=== PATIENT | male | born 1975 | race Caucasian/White ===

== ENCOUNTER 2025-03-06 17:22 | Emergency (ER) | payer MEDICAID, OTHER, SELFPAY ==
[~2025-03-06] VITALS: Ht 152.4 cm; Wt 56.8 kg
[2025-03-06 21:26] LABS: BASO % 0.7 % (0.0-1.0); EOS # 0.3 10^3/uL (0.0-0.5); EOS % 5.3 % (0.0-3.0); HEMATOCRIT 33.5 % (42.0-52.0); HEMOGLOBIN 10.6 g/dl (13.5-17.5); LYMPH # 1.3 10^3/uL (1.5-5.0); LYMPH % 22.4 % (24.0-44.0); MEAN CORPUSCULAR HEMOGLOBIN 27.1 pg (27.0-33.0); MEAN CORPUSCULAR HGB CONC 31.6 g/dl (32.0-36.5); MEAN CORPUSCULAR VOLUME 85.7 fl (80.0-96.0); MONO # 0.4 10^3/uL (0.0-0.8); MONO % 7.2 % (2.0-8.0); NEUTROPHILS # 3.6 10^3/uL (1.5-8.5); NEUTROPHILS % 64.2 % (36.0-66.0); PLATELET COUNT, AUTOMATED 289 10^3/uL (150-450); RED BLOOD COUNT 3.91 10^6/uL (4.30-6.10); WHITE BLOOD COUNT 5.7 10^3/uL (4.0-10.0)
[2025-03-06 21:31] LABS: LIPASE 67 U/L (12-53)
[2025-03-06 21:34] LABS: ALBUMIN 3.4 G/DL (3.2-5.2); ALKALINE PHOSPHATASE 74 U/L (40-129); ALT/SGPT 28 U/L (7.0-40); AST/SGOT 22 U/L (<34); BILIRUBIN,DIRECT < 0.1 MG/DL (<0.4); BILIRUBIN,TOTAL 0.2 MG/DL (0.3-1.2); BLOOD UREA NITROGEN 34 MG/DL (9-23); CALCIUM LEVEL 8.9 MG/DL (8.5-10.1); CARBON DIOXIDE LEVEL 29 MMOL/L (20-31); CHLORIDE LEVEL 104 MMOL/L (98-107); CREATININE FOR GFR 1.29 MG/DL (0.70-1.30); GLOMERULAR FILTRATION RATE 68.8 (>60); GLUCOSE, FASTING 284 MG/DL (60-100); MAGNESIUM LEVEL 2.1 MG/DL (1.8-2.4); POTASSIUM SERUM 5.2 MMOL/L (3.5-5.1); SODIUM LEVEL 142 MMOL/L (136-145); TOTAL PROTEIN 5.8 G/DL (5.7-8.2)
[2025-03-06 21:35] LABS: ACETONE/KETONE 0.11 MMOL/L (0.02-0.27)
[2025-03-06] MEDS: NS (Normal Saline) 0.9% 1,000 ML IV ONE (21:35)
[2025-03-06 21:41] LABS: OSMOLALITY SERUM 310 MOSM/KG (275-295)
[2025-03-06 21:53] LABS: HEMOGLOBIN A1c 9.5 % (4.0-6.0)
[2025-03-06] MEDS: hydrOXYzine 25 MG TAB PO STA (22:12)
[2025-03-07] MEDS ORDERED: LANTINJ4 SC ×2 (00:39→00:51)
[2025-03-07] MEDS ORDERED: INSU100I16 SQ ×2 (00:39→00:51)
[2025-03-07 01:19] VITALS: BP 145/70; TEMP 98.1; O2SAT 98
== END 2025-03-07 01:37 | disposition home or self-care (01) ==
LOC: M ED 17:22
DX: H53.123 Transient visual loss, bilateral (principal); E10.65 Type 1 diabetes mellitus with hyperglycemia; F12.10 Cannabis abuse, uncomplicated; F10.10 Alcohol abuse, uncomplicated; Z88.8 Allergy status to other drugs, medicaments and biological substances

== ENCOUNTER → 2025-03-31 | Outpatient (CLI) | payer MEDICAID, OTHER ==
[~2025-03-31] MED LIST: INSU100I16 SQ; LANTINJ4 SC
== END ==
LOC: M PLALAB 11:51 → M LAB 11:51
PROVIDERS: ATTEND Student in an Organized Health Care Education/Training Program
DX: E11.69 Type 2 diabetes mellitus with other specified complication (principal); Z79.4 Long term (current) use of insulin

== ENCOUNTER 2025-05-02 07:57 | Emergency (ER) | payer MEDICAID, OTHER ==
[~2025-05-02] VITALS: Ht 152.4 cm; Wt 59.2 kg
[2025-05-02] MEDS ORDERED: BUPR150T12 (08:08)
[2025-05-02] MEDS ORDERED: PREG50CA3 (08:08)
[2025-05-02] MEDS ORDERED: DULO1CAP6 (08:08)
[2025-05-02] MEDS ORDERED: CELE1CAP (08:08)
[2025-05-02] MEDS ORDERED: TRAZ-252 (08:08)
[2025-05-02] MEDS: MORPHINE 4 MG/ML 1 ML VIAL IV ONE ×2 (10:41→12:21)
[2025-05-02] MEDS: ONDANSETRON 4MG 2ML VIAL IV ONE (10:41)
[2025-05-02] MEDS: NS (Normal Saline) 0.9% 1,000 ML IV ONE ×2 (10:41→13:55)
[2025-05-02 10:54] LABS: BASO # 0.1 10^3/uL (0.0-0.2); BASO % 1.0 % (0.0-1.0); EOS # 0.4 10^3/uL (0.0-0.5); EOS % 6.1 % (0.0-3.0); LYMPH # 2.2 10^3/uL (1.5-5.0); LYMPH % 31.3 % (24.0-44.0); MONO # 0.5 10^3/uL (0.0-0.8); MONO % 7.5 % (2.0-8.0); NEUTROPHILS # 3.8 10^3/uL (1.5-8.5); NEUTROPHILS % 54.0 % (36.0-66.0); PLATELET COUNT, AUTOMATED 278 10^3/uL (150-450)
[2025-05-02 11:21] LABS: ALT/SGPT 24 U/L (7.0-40); AST/SGOT 38 U/L (<34); CALCIUM LEVEL 8.9 MG/DL (8.5-10.1); CARBON DIOXIDE LEVEL 26 MMOL/L (20-31); CHLORIDE LEVEL 105 MMOL/L (98-107); CK-MB VALUE MASS 10.5 NG/ML (<3.6); CPK CREATINE PHOSPHOKINASE 242 U/L (46-171); CREATININE FOR GFR 1.52 MG/DL (0.70-1.30); GLOMERULAR FILTRATION RATE 56.5 (>60); MB/CK RELATIVE INDEX 4.33 (< OR =4); POTASSIUM SERUM 6.1 MMOL/L (3.5-5.1); SODIUM LEVEL 142 MMOL/L (136-145)
[2025-05-02] MEDS ORDERED: ISOVUE-370 76% 100 ML VIAL As Ordered ONE (11:29)
[2025-05-02 12:00] LABS: POTASSIUM SERUM 5.0 MMOL/L (3.5-5.1)
[2025-05-02 13:48] LABS: KETONE, URINE AUTO RFX NEGATIVE (NEGATIVE); LEUKOCYTE ESTERASE UR AUTO RFX NEGATIVE (NEGATIVE); NITRITE, URINE AUTO RFX NEGATIVE (NEGATIVE); RBC, URINE AUTO RFX 3 /HPF (0-3); SQUAM EPITHELIAL CELL UR AURFX 0 /HPF (0-6); WBC, URINE AUTO RFX 1 /HPF (0-3)
[2025-05-02] MEDS ORDERED: COLA100C5 PO (13:49)
[2025-05-02] MEDS ORDERED: OMEP40CA4 PO (14:44)
[2025-05-02 16:00] VITALS: BP 140/68; TEMP 96.6; O2SAT 98
== END 2025-05-02 16:02 | disposition home or self-care (01) ==
LOC: M ED 07:57
DX: E86.0 Dehydration (principal); N17.9 Acute kidney failure, unspecified; N40.0 Benign prostatic hyperplasia without lower urinary tract symptoms; K59.00 Constipation, unspecified; R79.9 Abnormal finding of blood chemistry, unspecified; J43.9 Emphysema, unspecified; N32.89 Other specified disorders of bladder; R31.9 Hematuria, unspecified; E10.9 Type 1 diabetes mellitus without complications; F41.9 Anxiety disorder, unspecified; Z87.01 Personal history of pneumonia (recurrent); F12.10 Cannabis abuse, uncomplicated; Z88.8 Allergy status to other drugs, medicaments and biological substances
CPT/HCPCS: 71275; 74177; 80048; 80076; 81001; 82550; 82553; 83690; 84132; 84484; 85025; 87486; 87581; 87633; 87798; 93005; 96361; 96374; 96375; 96376; 99285; J2405; Q9967

== ENCOUNTER 2025-05-30 02:14 | Emergency (ER) | payer OTHER ==
[~2025-05-30] VITALS: Ht 152.4 cm; Wt 59.1 kg
[~2025-05-30 02:14] MED LIST changes: +BUPR150T12; +CELE1CAP; +COLA100C5 PO; +DULO1CAP6; +OMEP40CA4 PO; +PREG50CA3; +TRAZ-252
[2025-05-30 02:43] LABS: BASO # 0.1 10^3/uL (0.0-0.2); BASO % 0.7 % (0.0-1.0); EOS # 0.5 10^3/uL (0.0-0.5); EOS % 5.2 % (0.0-3.0); LYMPH # 1.6 10^3/uL (1.5-5.0); LYMPH % 17.5 % (24.0-44.0); MONO # 0.6 10^3/uL (0.0-0.8); MONO % 7.0 % (2.0-8.0); NEUTROPHILS # 6.3 10^3/uL (1.5-8.5); NEUTROPHILS % 69.2 % (36.0-66.0); PLATELET COUNT, AUTOMATED 302 10^3/uL (150-450)
[2025-05-30 03:16] LABS: CALCIUM LEVEL 9.8 MG/DL (8.5-10.1); CARBON DIOXIDE LEVEL 27.0 MMOL/L (20-31); CHLORIDE LEVEL 104.0 MMOL/L (98-107); CK-MB VALUE MASS 10.3 NG/ML (<3.6); CREATININE FOR GFR 1.58 MG/DL (0.70-1.30); GLOMERULAR FILTRATION RATE 53.6 (>60); POTASSIUM SERUM 4.8 MMOL/L (3.5-5.1); SODIUM LEVEL 141.0 MMOL/L (136-145)
[2025-05-30 03:22] LABS: CPK CREATINE PHOSPHOKINASE 167.0 U/L (46-171); MB/CK RELATIVE INDEX 6.16 (< OR =4)
[2025-05-30] MEDS: MORPHINE 2 MG/ML 1 ML VIAL IV ONE (04:38)
[2025-05-30] MEDS: NS 1,180 ML IV ONE (04:55)
[2025-05-30 05:15] LABS: CK-MB VALUE MASS 10.1 NG/ML (<3.6)
[2025-05-30 05:16] LABS: CPK CREATINE PHOSPHOKINASE 147.0 U/L (46-171); MB/CK RELATIVE INDEX 6.87 (< OR =4)
[2025-05-30] MEDS: KETOROLAC 30 MG/ML 1 ML VIAL IV ONE (05:33)
[2025-05-30 05:48] VITALS: TEMP 97.3
[2025-05-30] MEDS ORDERED: IBUP600T42 PO (05:53)
[2025-05-30 06:14] VITALS: O2SAT 99
[2025-05-30 06:15] VITALS: BP 152/69
== END 2025-05-30 06:39 | disposition home or self-care (01) ==
LOC: M ED 02:14
DX: M25.511 Pain in right shoulder (principal); R07.89 Other chest pain; E11.9 Type 2 diabetes mellitus without complications; K31.84 Gastroparesis; Z79.899 Other long term (current) drug therapy; Z88.8 Allergy status to other drugs, medicaments and biological substances
CPT/HCPCS: 71045; 80048; 82550; 82553; 84484; 85025; 93005; 93041; 94760; 99285; J1885

== ENCOUNTER 2025-07-30 10:37 | Inpatient (IN) | payer OTHER ==
[~2025-07-30] VITALS: Ht 152.4 cm; Wt 57.9 kg
[~2025-07-30 10:37] MED LIST changes: -BUPR150T12; +BUPR150T12 PO; -CELE1CAP; +CELE1CAP PO; -DULO1CAP6; +DULO1CAP6 PO; +IBUP600T42 PO; -PREG50CA3; +PREG50CA3 PO; -TRAZ-252; +TRAZ-252 PO
[2025-07-30 12:26] LABS: BASO # 0.0 10^3/uL (0.0-0.2); BASO % 0.5 % (0.0-1.0); EOS # 0.3 10^3/uL (0.0-0.5); EOS % 4.2 % (0.0-3.0); LYMPH # 1.5 10^3/uL (1.5-5.0); LYMPH % 23.7 % (24.0-44.0); MONO # 0.6 10^3/uL (0.0-0.8); MONO % 9.1 % (2.0-8.0); NEUTROPHILS # 3.8 10^3/uL (1.5-8.5); NEUTROPHILS % 62.3 % (36.0-66.0); PLATELET COUNT, AUTOMATED 268 10^3/uL (150-450)
[2025-07-30 12:51] LABS: CK-MB VALUE MASS 13.3 NG/ML (<3.6)
[2025-07-30 12:53] LABS: CALCIUM LEVEL 9.1 MG/DL (8.5-10.1); CARBON DIOXIDE LEVEL 27.0 MMOL/L (20-31); CHLORIDE LEVEL 106.0 MMOL/L (98-107); CPK CREATINE PHOSPHOKINASE 226.0 U/L (46-171); CREATININE FOR GFR 1.65 MG/DL (0.70-1.30); GLOMERULAR FILTRATION RATE 50.9 (>60); MAGNESIUM LEVEL 2.0 MG/DL (1.8-2.4); MB/CK RELATIVE INDEX 5.88 (< OR =4); POTASSIUM SERUM 4.9 MMOL/L (3.5-5.1); SODIUM LEVEL 143.0 MMOL/L (136-145)
[2025-07-30] MEDS: ACETAMINOPHEN *IV* 1,000 MG in IV 1 EA IV ONE (13:06)
[2025-07-30] MEDS: NS (Normal Saline) 0.9% 1,000 ML IV ONE (13:53)
[2025-07-30 14:23] LABS: KETONE, URINE AUTO RFX NEGATIVE (NEGATIVE); LEUKOCYTE ESTERASE UR AUTO RFX NEGATIVE (NEGATIVE); MUCUS, URINE RFX SMALL (NEGATIVE); NITRITE, URINE AUTO RFX NEGATIVE (NEGATIVE); RBC, URINE AUTO RFX 1 /HPF (0-3); SQUAM EPITHELIAL CELL UR AURFX 0 /HPF (0-6); WBC, URINE AUTO RFX 0 /HPF (0-3)
[2025-07-30] MEDS ORDERED: KETOROLAC 30 MG/ML 1 ML VIAL As Ordered ONE (14:59)
[2025-07-30] MEDS: KETOROLAC 30 MG/ML 1 ML VIAL IV ONE ×2 (15:00→18:17)
[2025-07-30] MEDS: diphenhydrAMINE 50 MG/ML VIAL IV ONE (17:50)
[2025-07-30] MEDS ORDERED: GLUCAGON INJ 1 MG VIAL SC PRN (18:55)
[2025-07-30 19:30] LABS: AMPHETAMINES LEVEL URINE NEGATIVE (NEGATIVE)
[2025-07-30 19:31] LABS: BARBITURATES URINE NEGATIVE (NEGATIVE); BENZODIAZEPINES URINE NEGATIVE (NEGATIVE); COCAINE METABOLITE URINE NEGATIVE (NEGATIVE); METHADONE URINE NEGATIVE (NEGATIVE); OPIATES URINE NEGATIVE (NEGATIVE); PHENCYCLIDINE URINE NEGATIVE (NEGATIVE)
[2025-07-30 19:32] LABS: CANNABINOIDS URINE POSITIVE (NEGATIVE)
[2025-07-30] MEDS: ATORVASTATIN 20 MG TAB PO ONE (20:11)
[2025-07-30] MEDS: ASPIRIN 325 MG TAB PO ONE (20:11)
[2025-07-30] MEDS: NS (Normal Saline) 0.9% 1,000 ML IV SCH (20:42)
[2025-07-30] MEDS ORDERED: LanTUS (INSULIN GLARGINE INJ) 1 UNITS/0.01 ML SC SCH (21:00)
[2025-07-30] MEDS: INSULIN LISPRO (NovoLOG) PER UNIT SC SCH (21:00)
[2025-07-30] MEDS ORDERED: INSU100I16 SQ (21:02)
[2025-07-30] MEDS ORDERED: LANTINJ4 SC (21:02)
[2025-07-30] MEDS ORDERED: DOCU100C16 PO (21:02)
[2025-07-30] MEDS ORDERED: B-COCAP7 PO (21:03)
[2025-07-30 21:18] VITALS: BP 163/75; TEMP 98.8; O2SAT 97
[2025-07-30 22:04] LABS: ESTIMATED AVERAGE GLUCOSE 180.0 MG/DL (60-110)
[2025-07-30 22:12] LABS: ETHYL ALCOHOL (ETHANOL) < 0.003 % (0.000-0.010)
[2025-07-30 22:14] LABS: CREATININE FOR GFR 1.53 MG/DL (0.70-1.30); GLOMERULAR FILTRATION RATE 55.7 (>60)
[2025-07-30] MEDS ORDERED: HOME MED LIST COMPLETE! XX SCH (22:15)
[2025-07-30 22:17] LABS: VITAMIN B12 LEVEL 366 PG/ML (211-911)
[2025-07-30 22:26] LABS: INR 0.86
[2025-07-30 23:07] LABS: C REACTIVE PROTEIN QUANTITATIV < 0.50 MG/DL (<1.0)
[2025-07-31] MEDS ORDERED: INSULIN LISPRO (NovoLOG) PER UNIT SC SCH
[2025-07-31] MEDS: FIORICET TAB PO PRN (00:44)
[2025-07-31 03:24] VITALS: BP 132/64; TEMP 98.7; O2SAT 98
[2025-07-31 06:55] LABS: PLATELET COUNT, AUTOMATED 245 10^3/uL (150-450)
[2025-07-31 07:17] LABS: CALCIUM LEVEL 8.1 MG/DL (8.5-10.1); CARBON DIOXIDE LEVEL 26.0 MMOL/L (20-31); CHLORIDE LEVEL 107.0 MMOL/L (98-107); CREATININE FOR GFR 1.48 MG/DL (0.70-1.30); GLOMERULAR FILTRATION RATE 58.0 (>60); POTASSIUM SERUM 4.9 MMOL/L (3.5-5.1); SODIUM LEVEL 140.0 MMOL/L (136-145)
[2025-07-31] MEDS: INSULIN LISPRO (NovoLOG) PER UNIT SC SCH (08:07)
[2025-07-31] MEDS: CYANOCOBALAMIN 500 MCG TAB PO SCH (08:07)
[2025-07-31] MEDS: ENOXAPARIN 40 MG/0.4 ML SYRINGE (J1650 PER 10MG) SC SCH (08:07)
[2025-07-31] MEDS: LanTUS (INSULIN GLARGINE INJ) 1 UNITS/0.01 ML SC SCH (08:08)
[2025-07-31] MEDS: THIAMINE 100 MG TAB PO SCH (08:08)
[2025-07-31 09:36] LABS: IRON (FE) 60.0 UG/DL (65-175); PERCENT SATURATION 19.5 % (19.7-50.0)
[2025-07-31 09:39] LABS: VITAMIN B12 LEVEL 304.0 PG/ML (211-911)
[2025-07-31 12:00] VITALS: BP 148/70; TEMP 98.5; O2SAT 95
[2025-07-31] MEDS: FERROUS SULFATE 325 MG TAB PO SCH (12:47)
[2025-07-31] MEDS: buPROPion **XL** 150 MG TABLET PO SCH (12:48)
[2025-07-31] MEDS: CYANOCOBALAMIN 1,000 MCG/ML 1 ML VIAL IM ONE (13:57)
[2025-07-31] MEDS: GLUCOSE 4 GM CHEW PO PRN (14:22)
[2025-07-31] MEDS: PREGABALIN 100 MG CAP PO SCH (16:12)
[2025-07-31] MEDS: ACETAMINOPHEN 325 MG TAB PO ONE (17:09)
[2025-07-31] MEDS: MAG SULF 1GM/100ML (MAG RUN) 1 GM in IV 1 EA IV ONE (17:09)
[2025-07-31 20:31] VITALS: BP 132/60; TEMP 98.3; O2SAT 98
[2025-07-31] MEDS: traZODone 100 MG TAB PO SCH (21:27)
[2025-08-01 05:34] VITALS: BP 103/57; TEMP 98.9; O2SAT 97
[2025-08-01 07:47] LABS: ALT/SGPT 13.0 U/L (7.0-40); AST/SGOT 17.0 U/L (<34); CALCIUM LEVEL 8.4 MG/DL (8.5-10.1); CARBON DIOXIDE LEVEL 27.0 MMOL/L (20-31); CHLORIDE LEVEL 108.0 MMOL/L (98-107); CREATININE FOR GFR 1.44 MG/DL (0.70-1.30); GLOMERULAR FILTRATION RATE 59.9 (>60); POTASSIUM SERUM 5.2 MMOL/L (3.5-5.1); SODIUM LEVEL 143.0 MMOL/L (136-145)
[2025-08-01] MEDS: LanTUS (INSULIN GLARGINE INJ) 1 UNITS/0.01 ML SC SCH (08:05)
[2025-08-01 08:18] LABS: T P ELECTROPHORESIS SO 5.1 g/dL (6.1-8.1)
[2025-08-01] MEDS: DEXTROSE 50% 50 ML SYRINGE IV PRN (10:21)
[2025-08-01 12:45] VITALS: BP 110/59; TEMP 98.1; O2SAT 97
[2025-08-01] MEDS: SUMAtriptan SUCCINATE 50MG TABLET PO ONE (13:37)
[2025-08-01] MEDS: TOPIRAMATE 25 MG TAB PO ONE (18:02)
[2025-08-01 20:40] VITALS: BP 143/67; TEMP 98.6; O2SAT 97
[2025-08-02 03:42] VITALS: BP 88/51; TEMP 99.2; O2SAT 96
[2025-08-02] MEDS: NS (Normal Saline) 0.9% 1,000 ML IV ONE (04:49)
[2025-08-02 06:11] VITALS: BP 117/56
[2025-08-02 06:48] LABS: PLATELET COUNT, AUTOMATED 244 10^3/uL (150-450)
[2025-08-02] MEDS: TOPIRAMATE 25 MG TAB PO SCH (08:54)
[2025-08-02] MEDS: LanTUS (INSULIN GLARGINE INJ) 1 UNITS/0.01 ML SC SCH (09:48)
[2025-08-02] MEDS: LORazepam 1 MG TAB PO ONE (11:35)
[2025-08-02 11:40] VITALS: BP 105/57; TEMP 98.4; O2SAT 99
[2025-08-02] MEDS ORDERED: PROHANCE 279.3MG/ML 15ML VIAL As Ordered ONE (12:16)
[2025-08-02 20:02] VITALS: BP 98/46; TEMP 98.2; O2SAT 98
[2025-08-03 06:03] VITALS: BP 100/55; TEMP 98.1; O2SAT 97
[2025-08-03 06:33] LABS: PLATELET COUNT, AUTOMATED 242 10^3/uL (150-450)
[2025-08-03 07:02] LABS: ALT/SGPT 15 U/L (7.0-40); AST/SGOT 14 U/L (<34); CALCIUM LEVEL 8.5 MG/DL (8.5-10.1); CARBON DIOXIDE LEVEL 27 MMOL/L (20-31); CHLORIDE LEVEL 107 MMOL/L (98-107); CREATININE FOR GFR 1.34 MG/DL (0.70-1.30); GLOMERULAR FILTRATION RATE 65.3 (>60); MAGNESIUM LEVEL 1.9 MG/DL (1.8-2.4); POTASSIUM SERUM 5.4 MMOL/L (3.5-5.1); SODIUM LEVEL 141 MMOL/L (136-145)
[2025-08-03 07:02] LABS: ALBUMIN SPEP 3.1 g/dL (3.8-4.8); ALPHA-1-GLOBULINS SO 0.2 g/dL (0.2-0.3); ALPHA-2-GLOBULINS SO 0.6 g/dL (0.5-0.9); BETA 2 GLOBULIN 0.3 g/dL (0.2-0.5); BETA-GLOBULIN SO 0.4 g/dL (0.4-0.6); GAMMA GLOBULINS SO 0.5 g/dL (0.8-1.7)
[2025-08-03 12:00] VITALS: BP 95/52; TEMP 99.1; O2SAT 99
[2025-08-03] MEDS: KETOROLAC 30 MG/ML 1 ML VIAL IV ONE (13:43)
[2025-08-03] MEDS: MAG SULF 1GM/100ML (MAG RUN) 1 GM in IV 1 EA IV ONE (13:45)
[2025-08-03] MEDS: LR 500 ML in IV 1 EA IV ONE (13:45)
[2025-08-03 14:22] LABS: CALCIUM LEVEL 8.5 MG/DL (8.5-10.1); CARBON DIOXIDE LEVEL 24.0 MMOL/L (20-31); CHLORIDE LEVEL 108.0 MMOL/L (98-107); CREATININE FOR GFR 1.41 MG/DL (0.70-1.30); GLOMERULAR FILTRATION RATE 61.5 (>60); POTASSIUM SERUM 4.8 MMOL/L (3.5-5.1); SODIUM LEVEL 141.0 MMOL/L (136-145)
[2025-08-03] MEDS ORDERED: LANTINJ4 SC (14:34)
[2025-08-03] MEDS ORDERED: TRAZ-252 PO (14:34)
[2025-08-03] MEDS ORDERED: PREG50CA3 PO ×2 (14:34→14:36)
[2025-08-03] MEDS ORDERED: ASPI81CH33 PO (14:44)
[2025-08-04 01:43] LABS: COPPER PLASMA 86.0 mcg/dL (70-175)
[2025-08-04 22:04] LABS: LYME TOTAL ANTIBODY CIA <= 0.90 Index (<=0.90)
[2025-08-06 12:02] LABS: VITAMIN B6,PYRIDOXAL PHOSPHATE 5.1 ng/mL (2.1-21.7)
== END 2025-08-03 18:11 | disposition home health service (06) | DRG 861 ==
LOC: M ED 10:37 → M ED INP 18:55 → M MSPAV 21:40
PROVIDERS: ADMIT Internal Medicine; ATTEND Student in an Organized Health Care Education/Training Program
DX: R53.1 Weakness (principal); E10.22 Type 1 diabetes mellitus with diabetic chronic kidney disease; K31.84 Gastroparesis; N17.9 Acute kidney failure, unspecified; E10.649 Type 1 diabetes mellitus with hypoglycemia without coma; E10.40 Type 1 diabetes mellitus with diabetic neuropathy, unspecified; E10.43 Type 1 diabetes mellitus with diabetic autonomic (poly)neuropathy; R15.9 Full incontinence of feces; D64.9 Anemia, unspecified; E51.8 Other manifestations of thiamine deficiency; E51.9 Thiamine deficiency, unspecified; G43.909 Migraine, unspecified, not intractable, without status migrainosus; Q05.9 Spina bifida, unspecified; R26.2 Difficulty in walking, not elsewhere classified; Z86.73 Personal history of transient ischemic attack (TIA), and cerebral infarction without residual deficits; R25.1 Tremor, unspecified; F41.9 Anxiety disorder, unspecified; Z79.4 Long term (current) use of insulin; Z79.899 Other long term (current) drug therapy; Z88.8 Allergy status to other drugs, medicaments and biological substances; F12.90 Cannabis use, unspecified, uncomplicated